=== PATIENT | male | born 1985 | race Caucasian/White ===

== ENCOUNTER 2022-09-29 12:21 | Emergency (ER) | payer SELFPAY ==
[~2022-09-29] VITALS: Ht 170.2 cm; Wt 61.2 kg
--- NOTE | 2022-09-29 12:36 | NUR ---
CALLED IN ED WAITING ROOM. NO RESPONSE
[2022-09-29 12:46] VITALS: BP 122/73
--- NOTE | 2022-09-29 12:51 | NUR ---
DR ANGELA W/ PT FOR EVAL
[2022-09-29] MEDS ORDERED: SULF1TAB48 PO (12:57)
--- NOTE | 2022-09-29 13:00 | NUR ---
Patient discharged to home in stable condition. Written and verbal after care instructions given. Patient verbalizes understanding of instruction.
== END 2022-09-29 13:03 | disposition home or self-care (01) ==
LOC: ER 12:38
DX: L03.012 Cellulitis of left finger (principal); Z79.899 Other long term (current) drug therapy